=== PATIENT | female | born 1965 | race Asian ===

== ENCOUNTER 2022-01-12 16:52 | Emergency (ER) | payer OTHER ==
[~2022-01-12] VITALS: Ht 162.6 cm; Wt 71.7 kg
--- NOTE | 2022-01-12 17:05 | NUR ---
BIBRA 830 C/O DIZZINESS, NAUSEA, AND VOMITING ONSET 30 MINS [employer]. 4MG ZOFRAN GIVEN [employer]OWER. PT IS A&OX4. ATTACHED TO OMONITOR, VITALS ARE WITHIN NORMAL LIMITS, NO RESP DISTRESS NOTED. AWAITING MD ORDERS.
[2022-01-12 17:10] VITALS: BP 148/70
[2022-01-12] MEDS ORDERED: ONDANSETRON HCL/PF 4 MG/2 ML VIAL IVP ONE (18:00)
[2022-01-12] MEDS ORDERED: IV NS 0.9% 1,000 ML BAG IV ONE (18:00)
[2022-01-12] MEDS ORDERED: ONDANSETRON HCL/PF 4 MG/2 ML VIAL ONE (18:33)
--- NOTE | 2022-01-12 18:42 | NUR ---
Addendum IVF end times: 1. NS 1 liter start time 1841 pm end time: 1941 pm RAC PIV # 20, port # 1
[2022-01-12 19:05] LABS: CALCIUM, SERUM 9.4 mg/dL (8.5-10.1); POTASSIUM 3.6 mmol/L (3.5-5.1)
[2022-01-12 19:55] LABS: BASOPHILS % (AUTO) 0.1 % (0.0-2.0); EOSINOPHILS % (AUTO) 0.7 % (0.0-6.0); HEMATOCRIT 43 % (33-45); HEMOGLOBIN 14.2 g/dL (11.5-14.8); LYMPHOCYTES # (AUTO) 1.2 K/uL (0.8-4.8); LYMPHOCYTES % (AUTO) 8.1 % (20.0-44.0); MEAN CORPUSCULAR HGB CONC 33 g/dl (31.0-36.0); MEAN CORPUSCULAR VOLUME 86 fL (82-100); MONOCYTES # (AUTO) 1.1 K/uL (0.1-1.30); MONOCYTES % (AUTO) 7.5 % (2.0-12.0); NEUTROPHILS # (AUTO) 12.3 K/uL (1.8-8.9); NEUTROPHILS % (AUTO) 83.6 % (43.0-81.0); PLATELET COUNT (AUTO) 285 K/uL (150-450); WHITE BLOOD COUNT (AUTO) 14.6 K/uL (4.3-11.0)
[2022-01-12] MEDS ORDERED: ONDA4TAB5 PO (20:11)
--- NOTE | 2022-01-12 20:28 | NUR ---
Patient discharged to home in stable condition. Written and verbal after care instructions given. Patient verbalizes understanding of instruction.
== END 2022-01-12 20:30 | disposition home or self-care (01) ==
LOC: ER 16:56
DX: R11.2 Nausea with vomiting, unspecified (principal); R42 Dizziness and giddiness; I10 Essential (primary) hypertension; E11.9 Type 2 diabetes mellitus without complications
CPT/HCPCS: 99283; 96374; 96361; 85025; 80048; 36415; J2405; J7030